=== PATIENT | male | born 1945 | race Caucasian/White ===

== ENCOUNTER → 2017-12-25 | Outpatient (CLI) | payer OTHER | LOC: BHLMT 13:15 | PROVIDERS: ATTEND Internal Medicine Interventional Cardiology | DX: I25.10 Atherosclerotic heart disease of native coronary artery without angina pectoris (principal); E78.00 Pure hypercholesterolemia, unspecified; I10 Essential (primary) hypertension; I49.3 Ventricular premature depolarization; Z95.5 Presence of coronary angioplasty implant and graft | CPT/HCPCS: 93005-PO ==

== ENCOUNTER → 2018-08-20 | Outpatient (CLI) | payer OTHER | LOC: BHFA 11:30 | PROVIDERS: ATTEND Internal Medicine Interventional Cardiology | DX: I49.3 Ventricular premature depolarization (principal); R42 Dizziness and giddiness; I25.10 Atherosclerotic heart disease of native coronary artery without angina pectoris ==

== ENCOUNTER → 2018-08-22 | Outpatient (CLI) | payer OTHER | LOC: BHLMT 11:30 | PROVIDERS: ATTEND Internal Medicine Cardiovascular Disease | DX: I49.3 Ventricular premature depolarization (principal); I25.10 Atherosclerotic heart disease of native coronary artery without angina pectoris; I10 Essential (primary) hypertension | CPT/HCPCS: 93306-PO ==